=== PATIENT | female | born 1955 | race Caucasian/White ===

== ENCOUNTER → 2020-03-29 | Outpatient (CLI) | payer MEDICARE, OTHER ==
[2020-03-29 13:37] LABS: BASO % 0 % (0-3); EOS # 0.1 x10^3/uL (0.0-0.7); EOS % 1 % (0-3); HEMATOCRIT 37.8 % (36.0-47.0); HEMOGLOBIN 12.5 g/dL (12.0-15.5); LYMPH # 1.3 x10^3/uL (1.0-4.8); LYMPH % 8 % (24-48); MEAN CORPUSCULAR HEMOGLOBIN 28 pg (25-35); MEAN CORPUSCULAR HGB CONC 33 g/dL (31-37); MEAN CORPUSCULAR VOLUME 84 fL (79-100); MONO # 0.7 x10^3/uL (0.0-1.1); MONO % 5 % (0-9); NEUT # 14.2 x10^3uL (1.8-7.7); NEUT % 87 % (31-73); PLATELET COUNT 151 x10^3/uL (140-400); RED BLOOD COUNT 4.49 x10^6/uL (3.50-5.40); RED CELL DISTRIBUTION WIDTH 13.5 % (11.5-14.5); WHITE BLOOD COUNT 16.4 x10^3/uL (4.0-11.0)
[2020-03-29 14:00] LABS: BACTERIA,URINE FEW /HPF (0-FEW); BILIRUBIN,URINE NEG (NEG); CLARITY,URINE HAZY; COLOR,URINE YELLOW; GLUCOSE,URINE NEG (NEG); NITRITE,URINE NEG (NEG); SQUAMOUS EPITHELIAL CELL,UR FEW /LPF; UROBILINOGEN,URINE 0.2 mg/dL (0.2 mg/dL); WBC,URINE OCC /HPF (0-4)
[2020-03-29 14:04] LABS: ALBUMIN 4.1 g/dL (3.4-5.0); CALCIUM 9.8 mg/dL (8.5-10.1); GFR 56.2; POTASSIUM 3.5 mmol/L (3.5-5.1); TOTAL BILIRUBIN 0.5 mg/dL (0.2-1.0); TOTAL PROTEIN 8.3 g/dL (6.4-8.2)
[2020-03-29 14:29] LABS: % BANDS 6 % (0-9); % EOS 3 % (0-5); % LYMPHS 6 % (24-48); % MONOS 5 % (0-10); % SEGS 80 % (35-66); PLT ESTIMATE ADEQUATE (ADEQUATE); TOXIC GRANULATION SLIGHT; TOXIC VACUOLATION SLIGHT
== END ==
LOC: LAB 12:48
PROVIDERS: ATTEND Nurse Practitioner Adult Health
DX: R07.9 Chest pain, unspecified (principal); K76.0 Fatty (change of) liver, not elsewhere classified; I51.7 Cardiomegaly
CPT/HCPCS: 36415; 80053; 81001; 82553; 84443; 84484; 85007; 85025; 85379

== ENCOUNTER → 2020-04-01 | Outpatient (CLI) | payer MEDICARE, OTHER ==
[2020-04-01] MEDS: IOHEXOL 350 MG/ML 100 ML VIAL. IV ONE (14:11)
--- NOTE | 2020-04-01 14:24 | RAD ---
EXAM: CT angiography of the chest with intravenous contrast. HISTORY: Short of breath. TECHNIQUE: Computed tomographic images of the chest were obtained following the administration of intravenous contrast according to angiography protocol. Multiplanar reformatting was performed and three dimensional maximum intensity projection images were obtained. *One or more of the following individualized dose reduction techniques were utilized for this examination: 1. Automated exposure control. 2. Adjustment of the mA and/or kV according to patient size. 3. Use of iterative reconstruction technique. COMPARISON: None. FINDINGS: There is no convincing pulmonary embolism. Avulsion of the distal pulmonary arteries is limited due to suboptimal contrast opacification. There is mild cardiomegaly. The aorta is normal in caliber as a standard aortic arch branch pattern. There are few prominent mediastinal lymph nodes, the largest of which is inferior right paratracheal lymph node measuring 1.5 cm. There is no pneumothorax or pleural effusion. There is a 4 mm nodule within the right lower lobe. There is a 5 mm groundglass opacity within the right upper lobe, likely postinfectious or postinflammatory. There is posterior dependent and basilar predominant atelectasis. There is no consolidation. There is a small hiatal hernia. There is hepatomegaly and hepatic steatosis. The spleen is upper normal in size. There are degenerative changes involving the spine. There is no suspicious or acute osseous finding. IMPRESSION: 1. No evidence of pulmonary embolism. 2. Bilateral posterior and lower lobe predominant atelectasis. No consolidated infiltrate is seen. 3. 4 mm right lower lobe pulmonary nodule. Follow-up can be performed in one year if there are risk factors for pulmonary neoplasm. 4. Nonspecific mediastinal lymph nodes. These are likely physiologic or reactive. 5. Hepatomegaly and hepatic steatosis. Electronically signed by: Mali Theodore MD (04/01/2020 2:22 PM) [id number]
== END ==
LOC: CT 13:49
PROVIDERS: ATTEND Psychiatry & Neurology Neurology
DX: I26.99 Other pulmonary embolism without acute cor pulmonale (principal); R91.1 Solitary pulmonary nodule; I51.7 Cardiomegaly; K76.0 Fatty (change of) liver, not elsewhere classified; K44.9 Diaphragmatic hernia without obstruction or gangrene
CPT/HCPCS: 71275; Q9967